=== PATIENT | female | born 1940 | race Caucasian/White ===

== ENCOUNTER 2017-12-07 14:13 | Emergency (ER) | payer MEDICARE, BC ==
[~2017-12-07] VITALS: Ht 157.5 cm; Wt 55.9 kg
[2017-12-07 14:18] VITALS: Ht 157.5 cm; Wt 55.9 kg
[2017-12-07] MEDS ORDERED: PROZAC10 MG PO (14:24)
[2017-12-07] MEDS ORDERED: ATIVAN1 MG PO (14:25)
[2017-12-07 14:46] LABS: BASOPHILS 0.1 % (0-2); EOSINOPHILS 0.8 % (0-7); HEMOGLOBIN 12.2 g/dL (12-16); IMMATURE GRANULOCYTES 0.3 % (0-5); LYMPHOCYTES 6.6 % (15-50); MCH 30.2 pg (26.0-34.0); MCHC 33.9 g/dL (31.0-37.0); MCV 89.1 fL (80.0-100.0); MEAN PLATELET VOLUME 8.9 fL (7.4-10.4); MONOCYTES 13.1 % (2-11); NEUTROPHILS 79.1 % (40-80); PLATELET COUNT 358 10x3/uL (130-400); RBC 4.04 10x6/uL (4.00-5.40); RDW 12.6 % (11.5-14.5); WBC 13.6 10x3/uL (4.8-10.8)
[2017-12-07 15:17] LABS: ALBUMIN 3.1 g/dL (3.4-5.0); ALKALINE PHOSPHATASE 78 U/L (46-116); ALT (SGPT) 14 U/L (10-68); BILIRUBIN - TOTAL 0.38 mg/dL (0.2-1.3); CALC OSMOLALITY 267 mosm/kg (275-300); CALCIUM 8.8 mg/dL (8.5-10.1); CARBON DIOXIDE 25.9 mmol/L (21.0-32.0); CHLORIDE - SERUM 100 mmol/L (98-107); CREATININE - SERUM 0.7 mg/dL (0.6-1.3); GLUCOSE 120 mg/dL (74-106); POTASSIUM - SERUM 3.6 mmol/L (3.5-5.1); PROTEIN - SERUM 7.5 g/dL (6.4-8.2); SODIUM 134 mmol/L (136-145); UREA NITROGEN 10 mg/dL (7-18); eGFR NON AFRICAN AMERICAN 86 mL/min (90-120)
[2017-12-07 17:32] LABS: APPEARANCE HAZY (CLEAR); BILIRUBIN NEGATIVE (NEGATIVE); COLOR YELLOW (YELLOW); GLUCOSE NEGATIVE (NEGATIVE); KETONE SMALL mg/dL (NEGATIVE); NITRITE NEGATIVE (NEGATIVE); PROTEIN TRACE mg/dL (NEGATIVE); SPECIFIC GRAVITY 1.015 (1.005-1.020); UROBILINOGEN NORMAL (NORMAL)
[2017-12-07 17:35] LABS: BACTERIA FEW /hpf (NONE SEEN); EPITHELIAL CELLS 0-5 /hpf (0-5)
[2017-12-07 17:38] LABS: MUCUS <1+ /lpf (NONE SEEN)
[2017-12-07] MEDS ORDERED: FLAGYL500 MG PO (19:27)
[2017-12-07] MEDS ORDERED: CIPRO500 MG PO (19:27)
[2017-12-07] MEDS ORDERED: BENTYL 20 MG TA20 MG PO (19:28)
[2017-12-07 20:02] VITALS: BP 116/64
[2018-01-24 10:21] VITALS: Ht 157.5 cm; Wt 55.9 kg
== END 2017-12-07 20:06 | disposition home or self-care (01) ==
LOC: D.ER 14:13
PROVIDERS: Emergency Medicine
DX: K57.92 Diverticulitis of intestine, part unspecified, without perforation or abscess without bleeding (principal); R10.9 Unspecified abdominal pain; Z85.3 Personal history of malignant neoplasm of breast

== ENCOUNTER 2018-01-23 15:32 | Inpatient (IN) | payer MEDICARE, BC ==
[~2018-01-23] VITALS: Ht 157.5 cm; Wt 53.7 kg
--- NOTE | ~2018-01-23 | HP ---
PATIENT: RUBY TRONCOSO MEDICAL RECORD: [id number] ACCOUNT: [id number] LOCATION:[address] : 42 ADMISSION DATE: 01/23/18 PCP: MEDINA OLIVEIRA DO HISTORY AND PHYSICAL EXAMINATION HISTORY: A 77-year-old female presents to the clinic with persistent abdominal pain, intractable diarrhea, and 25-pound weight loss over the past several months. No improvement with outpatient therapy. Unable to wait for outpatient GI evaluation. PAST MEDICAL HISTORY: Significant for anxiety, depression, recurrent diverticulitis, abdominal pain, and prior history of breast cancer. ALLERGIES: TETRACYCLINE AND PENICILLIN. CURRENT MEDICATIONS: Dicyclomine 20 mg q.i.d., Florajen two p.o. daily, fluoxetine 10 mg daily, lorazepam 1 mg one p.o. t.i.d., and propranolol 20 mg b.i.d. FAMILY HISTORY: Significant for mother with bladder cancer, father with leukemia, and sister with diabetes. SOCIAL HISTORY: Former smoker, quit in . She is retired, , lives with her sister. Denies alcohol. Denies present tobacco. PAST SURGICAL HISTORY: Colonoscopy in 2014, mastectomy in 2009, in 1976, and appendectomy in 1961. REVIEW OF SYSTEMS: GENERAL: Admits loss of weight and loss of appetite with present symptoms. HEENT: Denies cephalgia, visual changes, tinnitus, epistaxis, or dysphagia. CARDIOVASCULAR: Denies chest pain. Denies palpitations. PULMONARY: Denies hemoptysis. Denies night sweats. GASTROINTESTINAL: Denies hematemesis, hematochezia, or melena. Admits to chronic diarrhea and weight loss. GENITOURINARY: Denies dysuria. MUSCULOSKELETAL: Progressive weakness with above symptoms. PHYSICAL EXAMINATION: VITAL SIGNS: Temperature 98.2, weight 114 pounds, blood pressure is 116/60, heart rate 110, respirations 18, and O2 sat is 98% room air. GENERAL: Alert, oriented, and in moderate distress secondary to above. HEENT: Normocephalic and atraumatic. Eyes; pupils are equally round and reactive. Ears; canals patent. TMs are intact. Nose; nares patent without drainage. Throat; no erythema and no exudates. NECK: Supple. No lymphadenopathy. No JVD. HEART: Regular. Tachycardic. LUNGS: Clear to auscultation bilaterally. Breathing is nonlabored. ABDOMEN: Soft and xmjl-ah-bcupkxus diffuse tenderness. No palpable mass. No rebound. No guarding. EXTREMITIES: Present times 4. NEUROLOGIC: Intact. SKIN: Warm and dry. No rash. LABORATORY DATA: CBC; white count 12.8, hemoglobin 11.6, hematocrit 36.1, and HISTORY AND PHYSICAL [id number] BALBEN,RUBY neutrophils 8.9. ASSESSMENT AND PLAN: Intractable diarrhea, dehydration, weight loss, tachycardia, leukocytosis, and abdominal pain. The patient is admitted. IV fluids. Consult GI. Stool for C. diff, leukocyte, C&S, and electrolyte protocol. Clear liquid diet. CBC, CMP, magnesium, and phosphorus on admission. IV normal saline at 100 mL per hour. UA and urine C&S. Fluoxetine 10 mg one p.o. q.a.m., lorazepam 0.5 one p.o. t.i.d., propranolol 20 mg one p.o. b.i.d., probiotics daily. Upright abdominal film, single view, on admission. TRANSINT:[id number] Voice Confirmation ID: [id number] DOCUMENT ID: [id number] MEDINA OLIVEIRA DO at 1649 CC: [id number] DICTATION DATE: 01/23/181714 BANQUET COORDINATOR: 01/23/18 175 ADM IN [facility] [address] [id number]
--- NOTE | ~2018-01-23 | DS ---
PATIENT:RUBY TRONCOSO :44 MEDICAL RECORD: [id number] DISCHARGE SUMMARY ADMISSION DATE: 01/23/18 DISCHARGE DATE: 01/29/18 DATE OF ADMISSION: 01/23/2018. DATE OF DISCHARGE: 01/29/2018. ADMISSION DIAGNOSES: Intractable diarrhea, dehydration, weight loss, abdominal pain, tachycardia, leukocytosis. DISCHARGE DIAGNOSES: Persistent diarrhea, weight loss, left lower quadrant abdominal pain, 4+ cm left pelvic cystic lesion. CONSULTS: GI and Gynecology. PROCEDURES: CT of the abdomen and pelvis and pelvic ultrasound. HOSPITAL COURSE: The patient was admitted from the clinic with persistent diarrhea, 25-pound weight loss over the past several months. No improvement with outpatient therapy, had an outpatient GI evaluation in progress. The patient continued to get worse, presented needing admission. Admitted, started on IV fluids. CT scan obtained. Electrolytes corrected. GI consulted. CT: Possible diverticulitis, was started on IV antibiotics. Cultures remained negative. Recommendations for colonoscopy with persistent symptoms, the patient declined. CT revealed a 4 cm left lower quadrant cystic pelvic lesion and likely correlation with left lower quadrant/pelvic tenderness, gynecology consulted. The patient declined any further intervention at this time, does agree to follow up with gynecology as an outpatient for further workup. The patient cleared for discharge by GI and gynecology. The patient discharged to home in a stable and improved condition. PHYSICAL EXAMINATION: VITAL SIGNS ON DISCHARGE: Temperature 98.6, blood pressure 135/69, heart rate 91, respirations 18, O2 sats 97% on room air. GENERAL: Alert, oriented. HEART: Regular rate and rhythm. LUNGS: Clear. ABDOMEN: Soft. Left lower quadrant/pelvic tenderness persist. Workup as outpatient as noted. EXTREMITIES: Present times 4. DISCHARGE INSTRUCTIONS: The patient will follow up in the clinic in 2 weeks. Clear liquid diet, advance as tolerated, meds per med rec. Will follow up with gynecology as scheduled. Will follow up with GI as scheduled. TRANSINT:[id number] Voice Confirmation ID: [id number] DOCUMENT ID: [id number] DISCHARGE SUMMARY REPORT [id number] CANDELARIOLATISHA HANSONMEDINA SHERMAN DO at 0938 CC: [id number] DICTATION DATE: 01/29/18 1538 TEA TASTER: 01/29/18 1547 DIS IN 01/29/18 [facility] [address] [place] [address]
[~2018-01-23 15:32] MED LIST: ATIVAN1 MG PO; BENTYL 20 MG TA20 MG PO; CIPRO500 MG PO; FLAGYL500 MG PO; PROZAC10 MG PO
[2018-01-23] MEDS ORDERED: PROPRANOLOL HCL20 MG PO (16:33)
[2018-01-23 16:35] LABS: BASOPHILS 0.2 % (0-2); EOSINOPHILS 1.6 % (0-7); HEMATOCRIT 32.2 % (36.0-48.0); HEMOGLOBIN 10.9 g/dL (12-16); IMMATURE GRANULOCYTES 0.4 % (0-5); LYMPHOCYTES 21.3 % (15-50); MCH 29.3 pg (26.0-34.0); MCHC 33.9 g/dL (31.0-37.0); MCV 86.6 fL (80.0-100.0); MEAN PLATELET VOLUME 8.2 fL (7.4-10.4); MONOCYTES 12.5 % (2-11); RBC 3.72 10x6/uL (4.00-5.40); RDW 15.8 % (11.5-14.5); WBC 12.7 10x3/uL (4.8-10.8)
[2018-01-23 16:54] VITALS: BP 126/54; BMI 20.9
[2018-01-23 16:56] LABS: ALBUMIN 2.4 g/dL (3.4-5.0); ALKALINE PHOSPHATASE 101 U/L (46-116); ALT (SGPT) 12 U/L (10-68); BILIRUBIN - TOTAL 0.48 mg/dL (0.2-1.3); CALC OSMOLALITY 267 mosm/kg (275-300); CALCIUM 8.2 mg/dL (8.5-10.1); CARBON DIOXIDE 24.4 mmol/L (21.0-32.0); CHLORIDE - SERUM 98 mmol/L (98-107); CREATININE - SERUM 0.7 mg/dL (0.6-1.3); GLUCOSE 104 mg/dL (74-106); MAGNESIUM - SERUM 2.1 mg/dL (1.8-2.4); PHOSPHOROUS 2.8 mg/dL (2.5-4.9); PLATELET COUNT 601 10x3/uL (130-400); POTASSIUM - SERUM 3.2 mmol/L (3.5-5.1); PROTEIN - SERUM 6.5 g/dL (6.4-8.2); SODIUM 135 mmol/L (136-145); UREA NITROGEN 8 mg/dL (7-18); eGFR NON AFRICAN AMERICAN 86 mL/min (90-120)
[2018-01-23 17:13] VITALS: BP 126/54
[2018-01-23 20:00] VITALS: BP 97/47
[2018-01-24] VITALS: BP 88/53
[2018-01-24 04:00] VITALS: BP 123/63
[2018-01-24 05:57] LABS: CALC OSMOLALITY 272 mosm/kg (275-300); CALCIUM 7.8 mg/dL (8.5-10.1); CARBON DIOXIDE 25.1 mmol/L (21.0-32.0); CHLORIDE - SERUM 103 mmol/L (98-107); CREATININE - SERUM 0.6 mg/dL (0.6-1.3); GLUCOSE 117 mg/dL (74-106); PHOSPHOROUS 3.2 mg/dL (2.5-4.9); POTASSIUM - SERUM 3.2 mmol/L (3.5-5.1); SODIUM 137 mmol/L (136-145); UREA NITROGEN 6 mg/dL (7-18); eGFR NON AFRICAN AMERICAN > 90 mL/min (90-120)
[2018-01-24 06:01] LABS: BASOPHILS 0.1 % (0-2); EOSINOPHILS 3.1 % (0-7); HEMATOCRIT 30.6 % (36.0-48.0); HEMOGLOBIN 10.1 g/dL (12-16); IMMATURE GRANULOCYTES 0.2 % (0-5); LYMPHOCYTES 20.4 % (15-50); MCH 28.7 pg (26.0-34.0); MCV 86.9 fL (80.0-100.0); MEAN PLATELET VOLUME 8.4 fL (7.4-10.4); MONOCYTES 11.1 % (2-11); NEUTROPHILS 65.1 % (40-80); PLATELET COUNT 618 10x3/uL (130-400); RBC 3.52 10x6/uL (4.00-5.40)
[2018-01-24 06:05] LABS: WBC 8.6 10x3/uL (4.8-10.8)
[2018-01-24 09:35] VITALS: BP 121/66
[2018-01-24 10:21] VITALS: Ht 157.5 cm; Wt 53.7 kg
[2018-01-24 11:55] VITALS: BP 122/77
[2018-01-24 15:34] VITALS: BP 124/65
[2018-01-24 20:00] VITALS: BP 140/62
[2018-01-25 04:00] VITALS: BP 138/60
[2018-01-25 08:58] VITALS: BP 138/58
[2018-01-25 10:50] LABS: BASOPHILS 0.2 % (0-2); EOSINOPHILS 2.4 % (0-7); HEMATOCRIT 31.5 % (36.0-48.0); HEMOGLOBIN 10.4 g/dL (12-16); IMMATURE GRANULOCYTES 0.2 % (0-5); LYMPHOCYTES 16.1 % (15-50); MCH 29.1 pg (26.0-34.0); MEAN PLATELET VOLUME 8.2 fL (7.4-10.4); MONOCYTES 11.9 % (2-11); NEUTROPHILS 69.2 % (40-80); PLATELET COUNT 532 10x3/uL (130-400); RBC 3.58 10x6/uL (4.00-5.40); WBC 8.6 10x3/uL (4.8-10.8)
[2018-01-25 10:58] LABS: CALC OSMOLALITY 277 mosm/kg (275-300); CALCIUM 7.6 mg/dL (8.5-10.1); CARBON DIOXIDE 22.1 mmol/L (21.0-32.0); CHLORIDE - SERUM 106 mmol/L (98-107); CREATININE - SERUM 0.5 mg/dL (0.6-1.3); GLUCOSE 134 mg/dL (74-106); SODIUM 140 mmol/L (136-145); eGFR NON AFRICAN AMERICAN > 90 mL/min (90-120)
[2018-01-25 11:03] LABS: UREA NITROGEN 4 mg/dL (7-18)
[2018-01-25 11:37] VITALS: BP 126/52
[2018-01-25 14:38] LABS: APPEARANCE CLEAR (CLEAR); BILIRUBIN NEGATIVE (NEGATIVE); COLOR YELLOW (YELLOW); GLUCOSE NEGATIVE (NEGATIVE); KETONE NEGATIVE (NEGATIVE); NITRITE NEGATIVE (NEGATIVE); PROTEIN NEGATIVE (NEGATIVE); UROBILINOGEN NORMAL (NORMAL)
[2018-01-25 16:02] VITALS: BP 159/62
[2018-01-25 20:30] VITALS: BP 138/81
[2018-01-26 04:30] VITALS: BP 125/61
[2018-01-26 05:08] LABS: BASOPHILS 0.2 % (0-2); EOSINOPHILS 3.6 % (0-7); HEMATOCRIT 32.1 % (36.0-48.0); HEMOGLOBIN 10.2 g/dL (12-16); IMMATURE GRANULOCYTES 0.2 % (0-5); LYMPHOCYTES 18.3 % (15-50); MCH 28.3 pg (26.0-34.0); MCHC 31.8 g/dL (31.0-37.0); MCV 88.9 fL (80.0-100.0); MEAN PLATELET VOLUME 8.5 fL (7.4-10.4); MONOCYTES 12.6 % (2-11); NEUTROPHILS 65.1 % (40-80); PLATELET COUNT 552 10x3/uL (130-400); RBC 3.61 10x6/uL (4.00-5.40); RDW 16.2 % (11.5-14.5); WBC 9.2 10x3/uL (4.8-10.8)
[2018-01-26 05:53] LABS: ALKALINE PHOSPHATASE 78 U/L (46-116); ALT (SGPT) 11 U/L (10-68); BILIRUBIN - TOTAL 0.26 mg/dL (0.2-1.3); CALC OSMOLALITY 270 mosm/kg (275-300); CALCIUM 7.8 mg/dL (8.5-10.1); CARBON DIOXIDE 26.8 mmol/L (21.0-32.0); CHLORIDE - SERUM 103 mmol/L (98-107); CREATININE - SERUM 0.6 mg/dL (0.6-1.3); GLUCOSE 107 mg/dL (74-106); POTASSIUM - SERUM 3.2 mmol/L (3.5-5.1); PROTEIN - SERUM 6.2 g/dL (6.4-8.2); SODIUM 137 mmol/L (136-145); UREA NITROGEN 3 mg/dL (7-18); eGFR NON AFRICAN AMERICAN > 90 mL/min (90-120)
[2018-01-26 08:58] VITALS: BP 164/60
[2018-01-26 12:02] VITALS: BP 113/67
[2018-01-26 16:30] VITALS: BP 122/53
[2018-01-26 21:09] VITALS: BP 139/73
[2018-01-27 06:00] LABS: BASOPHILS 0.4 % (0-2); HEMATOCRIT 29.5 % (36.0-48.0); HEMOGLOBIN 9.6 g/dL (12-16); IMMATURE GRANULOCYTES 0.3 % (0-5); LYMPHOCYTES 13.3 % (15-50); MCH 28.7 pg (26.0-34.0); MCHC 32.5 g/dL (31.0-37.0); MCV 88.3 fL (80.0-100.0); MEAN PLATELET VOLUME 8.7 fL (7.4-10.4); MONOCYTES 12.2 % (2-11); NEUTROPHILS 69.8 % (40-80); PLATELET COUNT 460 10x3/uL (130-400); RBC 3.34 10x6/uL (4.00-5.40); RDW 16.1 % (11.5-14.5); WBC 7.4 10x3/uL (4.8-10.8)
[2018-01-27 06:07] VITALS: BP 130/56
[2018-01-27 06:28] LABS: ALBUMIN 1.9 g/dL (3.4-5.0); ALKALINE PHOSPHATASE 71 U/L (46-116); ALT (SGPT) 11 U/L (10-68); BILIRUBIN - TOTAL 0.31 mg/dL (0.2-1.3); CARBON DIOXIDE 21.9 mmol/L (21.0-32.0); CHLORIDE - SERUM 101 mmol/L (98-107); CREATININE - SERUM 0.6 mg/dL (0.6-1.3); GLUCOSE 122 mg/dL (74-106); MAGNESIUM - SERUM 1.9 mg/dL (1.8-2.4); PHOSPHOROUS 2.2 mg/dL (2.5-4.9); PROTEIN - SERUM 6.1 g/dL (6.4-8.2); SODIUM 134 mmol/L (136-145); eGFR NON AFRICAN AMERICAN > 90 mL/min (90-120)
[2018-01-27 06:30] LABS: CALC OSMOLALITY 265 mosm/kg (275-300); POTASSIUM - SERUM 3.8 mmol/L (3.5-5.1); UREA NITROGEN 4 mg/dL (7-18)
[2018-01-27 08:26] VITALS: BP 133/66
[2018-01-27 12:03] VITALS: BP 118/61
[2018-01-27 15:59] VITALS: BP 128/68
[2018-01-27 20:00] VITALS: BP 103/81
[2018-01-28 04:00] VITALS: BP 115/82
[2018-01-28 04:55] LABS: BASOPHILS 0.1 % (0-2); EOSINOPHILS 1.4 % (0-7); HEMOGLOBIN 9.6 g/dL (12-16); IMMATURE GRANULOCYTES 0.1 % (0-5); LYMPHOCYTES 11.4 % (15-50); MCHC 33.1 g/dL (31.0-37.0); MCV 87.6 fL (80.0-100.0); MEAN PLATELET VOLUME 8.6 fL (7.4-10.4); MONOCYTES 12.5 % (2-11); NEUTROPHILS 74.5 % (40-80); PLATELET COUNT 366 10x3/uL (130-400); RBC 3.31 10x6/uL (4.00-5.40); RDW 16.2 % (11.5-14.5); WBC 8.6 10x3/uL (4.8-10.8)
[2018-01-28 05:21] LABS: ALBUMIN 1.8 g/dL (3.4-5.0); ALKALINE PHOSPHATASE 71 U/L (46-116); ALT (SGPT) 9 U/L (10-68); BILIRUBIN - TOTAL 0.21 mg/dL (0.2-1.3); CALCIUM 7.9 mg/dL (8.5-10.1); CARBON DIOXIDE 22.5 mmol/L (21.0-32.0); CHLORIDE - SERUM 104 mmol/L (98-107); CREATININE - SERUM 0.5 mg/dL (0.6-1.3); GLUCOSE 117 mg/dL (74-106); POTASSIUM - SERUM 3.4 mmol/L (3.5-5.1); PROTEIN - SERUM 5.9 g/dL (6.4-8.2); SODIUM 136 mmol/L (136-145); eGFR NON AFRICAN AMERICAN > 90 mL/min (90-120)
[2018-01-28 05:37] LABS: CALC OSMOLALITY 270 mosm/kg (275-300); PHOSPHOROUS 3.2 mg/dL (2.5-4.9); UREA NITROGEN 6 mg/dL (7-18)
[2018-01-28 07:44] VITALS: BP 144/69
[2018-01-28 10:58] VITALS: BP 112/59
[2018-01-28 15:38] VITALS: BP 119/66
[2018-01-28 20:00] VITALS: BP 112/58
[2018-01-29 04:00] VITALS: BP 159/63
[2018-01-29 07:44] VITALS: BP 133/67
[2018-01-29 11:16] VITALS: BP 135/69
[2018-01-29 15:33] VITALS: BP 106/62
== END 2018-01-29 18:57 | disposition home or self-care (01) | DRG 391 ==
LOC: D.M2 15:32
PROVIDERS: Family Medicine; Internal Medicine Gastroenterology
DX: K57.92 Diverticulitis of intestine, part unspecified, without perforation or abscess without bleeding (principal); E43 Unspecified severe protein-calorie malnutrition; N94.9 Unspecified condition associated with female genital organs and menstrual cycle; R63.4 Abnormal weight loss; R19.7 Diarrhea, unspecified; R00.0 Tachycardia, unspecified; F41.9 Anxiety disorder, unspecified; F32.9 Major depressive disorder, single episode, unspecified; E86.0 Dehydration; E87.6 Hypokalemia; K59.00 Constipation, unspecified; Z68.20 Body mass index [BMI] 20.0-20.9, adult; N83.209 Unspecified ovarian cyst, unspecified side; Z85.3 Personal history of malignant neoplasm of breast

== ENCOUNTER → 2018-03-06 09:47 | Outpatient (CLI) | payer MEDICARE, BC ==
[2018-01-24 10:21] VITALS: BMI 20.8
[~2018-03-06 09:47] MED LIST changes: +PROPRANOLOL HCL20 MG PO
== END | disposition home or self-care (01) ==
LOC: D.CT 09:47
DX: R10.32 Left lower quadrant pain (principal); Z87.19 Personal history of other diseases of the digestive system

== ENCOUNTER → 2018-06-05 12:36 | Outpatient (CLI) | payer MEDICARE, BC ==
[2018-01-24 10:21] VITALS: BMI 20.8
== END | disposition home or self-care (01) ==
LOC: D.MRI 12:36
DX: R19.00 Intra-abdominal and pelvic swelling, mass and lump, unspecified site (principal)

== ENCOUNTER → 2018-09-11 12:31 | Outpatient (CLI) | payer MEDICARE, BC ==
[2018-01-24 10:21] VITALS: BMI 20.8
== END | disposition home or self-care (01) ==
LOC: D.MRI 09:00
DX: N94.9 Unspecified condition associated with female genital organs and menstrual cycle (principal)

== ENCOUNTER → 2018-09-29 13:46 | Outpatient (CLI) | payer MEDICARE, BC ==
[2018-01-24 10:21] VITALS: BMI 20.8
[2018-09-29 14:11] LABS: BASOPHILS 0.4 % (0-2); EOSINOPHILS 5.9 % (0-7); HEMATOCRIT 38.4 % (36.0-48.0); HEMOGLOBIN 13.2 g/dL (12-16); IMMATURE GRANULOCYTES 0.3 % (0-5); LYMPHOCYTES 27.1 % (15-50); MCH 30.5 pg (26.0-34.0); MCHC 34.4 g/dL (31.0-37.0); MCV 88.7 fL (80.0-100.0); MEAN PLATELET VOLUME 9.1 fL (7.4-10.4); MONOCYTES 8.7 % (2-11); NEUTROPHILS 57.6 % (40-80); PLATELET COUNT 398 10x3/uL (130-400); RBC 4.33 10x6/uL (4.00-5.40); WBC 6.9 10x3/uL (4.8-10.8)
[2018-09-29 15:46] LABS: ERYTHROCYTE SEDIMENTATION RATE 45 mm/hr (0-30)
== END | disposition home or self-care (01) ==
LOC: D.LAB 13:46
PROVIDERS: ATTEND Internal Medicine Gastroenterology
DX: R10.9 Unspecified abdominal pain (principal); R19.5 Other fecal abnormalities; K64.9 Unspecified hemorrhoids

== ENCOUNTER → 2018-12-21 14:26 | Outpatient (CLI) | payer MEDICARE, BC ==
[2018-01-24 10:21] VITALS: BMI 20.8
== END | disposition home or self-care (01) ==
LOC: D.MRI 09-25 11:00
PROVIDERS: ATTEND Obstetrics & Gynecology Gynecology
DX: N94.9 Unspecified condition associated with female genital organs and menstrual cycle (principal)